=== PATIENT | female | born 1965 | race Caucasian/White ===

== ENCOUNTER → 2023-03-07 08:33 | Outpatient (REF) | payer OTHER, SELFPAY | LOC: RCS 08:33 | PROVIDERS: ATTENDING PHYSICIAN Internal Medicine Cardiovascular Disease; FAMILY PHYSICIAN Family Medicine | DX: I48.0 Paroxysmal atrial fibrillation (principal) | CPT/HCPCS: 93306 ==

== ENCOUNTER → 2023-03-21 15:07 | Outpatient (REF) | payer OTHER, SELFPAY | LOC: RAD 15:07 | PROVIDERS: ATTENDING PHYSICIAN Internal Medicine Cardiovascular Disease; FAMILY PHYSICIAN Family Medicine | DX: I48.0 Paroxysmal atrial fibrillation (principal); I34.0 Nonrheumatic mitral (valve) insufficiency; I77.819 Aortic ectasia, unspecified site | CPT/HCPCS: 71275; Q9967 ==

== ENCOUNTER → 2023-06-28 10:53 | Outpatient (REF) | payer OTHER, SELFPAY | LOC: DHVS 10:53 | PROVIDERS: ATTENDING PHYSICIAN Surgery Vascular Surgery; FAMILY PHYSICIAN Family Medicine | DX: I65.22 Occlusion and stenosis of left carotid artery (principal) | CPT/HCPCS: 93880 ==

== ENCOUNTER → 2023-07-17 09:38 | Outpatient (REF) | payer OTHER, SELFPAY | LOC: HWWDC 09:38 | PROVIDERS: ATTENDING PHYSICIAN Obstetrics & Gynecology; FAMILY PHYSICIAN Family Medicine | DX: Z12.31 Encounter for screening mammogram for malignant neoplasm of breast (principal) | CPT/HCPCS: 77063; 77067 ==

== ENCOUNTER → 2024-02-08 09:39 | Outpatient (REF) | payer BC, SELFPAY | LOC: RAD 09:39 | PROVIDERS: ATTENDING PHYSICIAN Registered Nurse; FAMILY PHYSICIAN Family Medicine | DX: I65.22 Occlusion and stenosis of left carotid artery (principal) | CPT/HCPCS: 93880 ==

== ENCOUNTER → 2024-02-09 12:49 | Outpatient (REF) | payer BC, SELFPAY | LOC: RAD 12:49 | PROVIDERS: ATTENDING PHYSICIAN Internal Medicine Endocrinology, Diabetes & Metabolism; FAMILY PHYSICIAN Family Medicine | DX: E04.2 Nontoxic multinodular goiter (principal); E83.52 Hypercalcemia | CPT/HCPCS: 76536 ==

== ENCOUNTER → 2024-08-19 11:11 | Outpatient (REF) | payer BC, SELFPAY | LOC: RAD 11:11 | PROVIDERS: ATTENDING PHYSICIAN Surgery Vascular Surgery; FAMILY PHYSICIAN Family Medicine | DX: I65.22 Occlusion and stenosis of left carotid artery (principal) | CPT/HCPCS: 93880 ==